=== PATIENT | female | born 1965 ===

== ENCOUNTER → 2018-10-24 21:11 | Outpatient (REF) | payer OTHER, SELFPAY ==
[2018-10-24 21:30] LABS: HEMOLYSIS < 15 (0-50)
[2018-10-24 21:34] LABS: Alanine Aminotransferase 35 IU/L (9-52); Albumin 4.6 g/dL (3.5-5.0); Albumin Globulin Ratio 1.6 (1.0-2.8); Alkaline Phosphatase 76 U/L (38-126); Aspartate Aminotransferase 28 IU/L (14-36); BUN Creatinine Ratio 24.3 (6-22); Bilirubin Total 0.3 mg/dL (0.2-1.3); Blood Urea Nitrogen 17 mg/dL (7-17); Calcium 9.7 mg/dL (8.4-10.2); Carbon Dioxide 31 mmol/L (22-32); Chloride 100 mmol/L (98-107); Estimated Glomerular Filt Rate > 60.0 mL/min (>60); Globulin 2.8 g/dL (1.7-4.1); Glucose 93 mg/dL (70-100); Potassium 4.4 mmol/L (3.4-5.1); Sodium 139 mmol/L (137-145); Total Protein 7.4 g/dL (6.3-8.2); Uric Acid 5.1 mg/dL (2.5-6.2)
[2018-10-24 21:36] LABS: Add Manual Diff / Slide Review NO; Basophils Absolute Auto 0 /uL (0-100); Basophils Percent Auto 1.1 % (0-2); Eosinophils Absolute Auto 200 /uL (0-450); Eosinophils Percent Auto 4.7 % (2-4); Hematocrit 40.7 % (36-46); Hemoglobin 13.7 g/dL (12.0-16.0); Lymphocytes Absolute Auto 1300 /uL (1100-4500); Lymphocytes Percent Auto 30.6 % (25-40); Mean Corpuscular HGB Conc 33.7 % (30-36); Mean Corpuscular Hemoglobin 28.3 PG (26-34); Mean Corpuscular Volume 84.2 fL (80-100); Monocytes Absolute Auto 300 /uL (0-900); Monocytes Percent Auto 6.9 % (3-14); Neutrophils Absolute Auto 2400 /uL (1500-7000); Neutrophils Percent Auto 56.7 % (50-75); Platelet Count 243 X10^3/uL (150-400); Red Blood Cell Count 4.84 X10^6/uL (4.0-5.2); White Blood Cell Count 4.2 X10^3/uL (4.5-11.0)
[2018-10-24 22:03] LABS: Erythrocyte Sedimentation Rate 6 MM/HR (0-20)
[2018-10-24 22:10] LABS: Ferritin 65.3 ng/mL (11.1-264)
[2018-10-24 22:18] LABS: C-Reactive Protein Quant < 0.5 mg/dL (<1.0)
[2018-10-24 22:29] LABS: Thyroid Stimulating Hormone 1.56 uIU/mL (0.47-4.68)
[2018-10-24 22:34] LABS: Free T4, Direct Thyroxine 1.38 ng/dL (0.78-2.19)
[2018-10-25 00:17] LABS: Rheumatoid Factor < 8.6 IU/mL (<12.0)
[2018-10-27 18:17] LABS: Anti Thyroglobulin Antibody < 1 IU/mL (< 2); Thyroid Peroxidase Antibodies < 1 IU/mL (< 9)
== END ==
LOC: LAB 21:11
PROVIDERS: Visit Provider Family Medicine
DX: B35.3 Tinea pedis (principal); B35.1 Tinea unguium; R53.83 Other fatigue; M25.50 Pain in unspecified joint; M79.10 Myalgia, unspecified site
CPT/HCPCS: 80053; 82728; 84439; 84443; 84550; 85025; 85651; 86038; 86140; 86200; 86376; 86430; 86800